=== PATIENT | female | born 1975 | race Caucasian/White ===

== ENCOUNTER 2023-01-17 09:31 | Outpatient (CLI) | payer OTHER, SELFPAY ==
--- NOTE | 2023-01-17 10:56 | W.ANESCHARGE ---
Anesthesia Charges Start Date/Time Anesthesia Start Date: 01/17/23 Anesthesia Start Time: 10:34 Stop Date/Time Anesthesia Stop Date: 01/17/23 Anesthesia Stop Time: 10:53
--- NOTE | 2023-01-17 10:57 | W.ANESCHARGE ---
Anesthesia Charges Start Date/Time Anesthesia Start Date: 01/17/23 Anesthesia Start Time: 10:34 Stop Date/Time Anesthesia Stop Date: 01/17/23 Anesthesia Stop Time: 10:53
== END 2023-01-17 09:32 | disposition home or self-care (01) ==
LOC: OP CLINIC 09:36
PROVIDERS: PCP Family Medicine; Visit Provider Internal Medicine Gastroenterology
DX: Z12.11 Encounter for screening for malignant neoplasm of colon (principal); K63.5 Polyp of colon
CPT/HCPCS: 00811; 00812; 45380; 45385; 88305; J2704